=== PATIENT | female | born 1950 | race Caucasian/White ===

== ENCOUNTER 2018-01-21 08:17 | Day surgery (SDC) | payer OTHER ==
[2018-01-21] MEDS ORDERED: LR 1,000 ML IV ONE (09:04)
--- NOTE | 2018-01-21 11:24 | PDHPUP ---
History & Physical Update H&P update statement: This history and physical update is based on an assessment of the patient which was completed after admission or registration (within 24 hours), but prior to the surgery/procedure. H&P update: H&P reviewed & patient examined, no change in patient's condition since H&P completed
--- NOTE | 2018-01-21 11:26 | PDANEPAE ---
ANE History of Present Illness EGD ANE Past Medical History - Cardiovascular History Hx Hypertension: No Hx Arrhythmias: No Hx Chest Pain: No Hx Coronary Artery / Peripheral Vascular Disease: No Hx CHF / Valvular Disease: No Hx Palpitations: No - Pulmonary History Hx COPD: No Hx Asthma/Reactive Airway Disease: No Hx Recent Upper Respiratory Infection: Yes Hx Oxygen in Use at Home: No O2 in Use at Home (L/minute): 2.L Hx Sleep Apnea: No Sleep Apnea Screening Result - Last Documented: Negative - Neurologic History Hx Cerebrovascular Accident: No Hx Seizures: No Hx Dementia: No Neurologic History Comment: tia 10yrs ago - Endocrine History Hx Diabetes: No Hypothyroid: No Hyperthyroid: No Obesity: mild - Renal History Hx Renal Disorders: No - Liver History Hx Hepatic Disorders: No - Neurological & Psychiatric Hx Hx Neurological and Psychiatric Disorders: Yes Neurological / Psychiatric History Comment: long hx chronic depression - Cancer History Hx Cancer: No - Congenital Disorder History Hx Congenital Disorders: No - GI History Hx Gastrointestinal Disorders: Yes Gastrointestinal History Comment: vomiting when eating - Other Health History Other Health History: none - Chronic Pain History Chronic Pain: Yes (bilat knees fibromyalgia) - Surgical History Prior Surgeries: angiogram 2010. tka 2012 ANE Review of Systems Review of Systems: - Exercise capacity METS (RN): 4 METS ANE Patient History - Allergies Allergies/Adverse Reactions: topiramate Allergy (Unknown, Unverified 01/20/18 17:27) - Home Medications Home Medications: Abilify 01/20/18 [Last Taken 01/21/18] Diazepam 01/20/18 [Last Taken 01/21/18] Effexor Xr 01/20/18 [Last Taken 01/21/18] Lamotrigine 01/20/18 [Last Taken 01/21/18] Methylphenidate HCl 01/20/18 [Last Taken 01/21/18] Namenda 5 mg (*) 01/20/18 [Last Taken 01/21/18] Oxybutynin 01/20/18 [Last Taken 01/21/18] Zolpidem Tartrate 01/20/18 [Last Taken 01/21/18] - NPO status NPO Since - Liquids (Date): 01/20/18 NPO Since - Liquids (Time): 22:00 NPO Since - Solids (Date): 01/20/18 NPO Since - Solids (Time): 19:00 - Anes Hx Anes Hx: post operative nausea, slow to awaken from anesthesia - Smoking Hx Smoking Status: Never smoked Marijuana use: No - Alcohol Use Alcohol Use: None - Family Anes Hx Family Anes Hx: none Family Hx Anesthesia Complications: none ANE Labs/Vital Signs - Vital Signs Blood Pressure: 144/89 Heart Rate: 64 Respiratory Rate: 16 O2 Sat (%): 94 Height: 172.72 cm Weight: 87.997 kg ANE Physical Exam - Airway Neck exam: FROM Mallampati Score: Class 1 - Pulmonary Pulmonary: no respiratory distress, no rales or rhonchi - Cardiovascular Cardiovascular: regular rate and rhythym, no murmur, rub, or gallop ANE Anesthesia Plan Anesthesia Plan: GA with mask Total IV Anesthesia: Yes
[2018-01-21] MEDS ORDERED: PROPOFOL/EMULSION 500 MG/50 ML BOTTLE IV ONE (11:33)
[2018-01-21] MEDS ORDERED: fentaNYL 100 MCG/2 ML INJ ONE (11:34)
[2018-01-21] MEDS ORDERED: LIDOCAINE 2% 5 ML SDV ONE (11:36)
--- NOTE | 2018-01-21 11:53 | GIREPORT ---
[facility] - Endoscopy Department Patient Name: Beckie Combs Procedure Date: 01/21/2018 10:52 AM Patient Type: Outpatient Attending MD/ ER Physician: Abby Johnson Procedure: Upper GI endoscopy Indications: Heartburn, Nausea Providers: Calvin Millan MD Referring MD: Micah Patel Medicines: Total IV Anesthesia (TIVA) = IV general without an airway Complications: No immediate complications. Estimated blood loss: Minimal. Description of Procedure: After obtaining informed consent, the endoscope was passed under direct vision. Throughout the procedure, the patient's blood pressure, pulse, and oxygen saturations were monitored continuously. The Endoscope was intro duced through the mouth, and advanced to the third part of duodenum. The uppe r GI endoscopy was accomplished without difficulty. The patient tolerated th e procedure well. Findings: LA Grade C (one or more mucosal breaks continuous between tops of 2 or more mucosal folds, less than 75% circumference) esophagitis with no bleedin g was found in the lower third of the esophagus. Biopsies were taken with a c old forceps for histology. Estimated blood loss was minimal. Localized moderate inflammation characterized by congestion (edema), erythema, friability and granularity was found in the cardia. Biopsies were taken with a cold forceps for histology. Estimated blood loss was minim al. The examined duodenum was normal. The exam was otherwise without abnormality. Estimated Blood Loss: Estimated blood loss was minimal. Post Op Diagnosis: - LA Grade C reflux esophagitis. Rule out Grimes's esophagus. Biopsied . - Gastritis. Biopsied. - Normal examined duodenum. - The examination was otherwise normal. Recommendation: - Await pathology results. - My office will call with the pathology result with 5-7 days. If you h ave not heard from my office by 1214, do not assume the pathology is butch l, please call [phone] to get the pathology results. - Follow an antireflux regimen. - Use Protonix (pantoprazole) 40 mg PO daily. Take 30-60 minutes before breakfast. - Use Zantac (ranitidine) 300 mg PO at bedtime. - Repeat upper endoscopy in 12 weeks to check healing. - Discharge patient to home (ambulatory). - Return to primary care physician as previously scheduled. - Return to GI clinic in 6 weeks. Schedule with PA for 6 week follow-up - Thank you for allowing me to help in your patient's care. Do not hesi dooley to call with any questions. Attending Participation: I personally performed the entire procedure. Monty Simpson M.D Calvin Millan MD 01/21/2018 11:53:26 AM This report has been signed electronicallyMathew MD Monty Number of Addenda: 0 Note Initiated On: 01/21/2018 10:52 AM [email or web address]
[2018-01-21] MEDS ORDERED: ONDANSETRON 4 MG/2 ML VIAL IVP PRN (11:58)
[2018-01-21] MEDS ORDERED: NALOXONE HCL 0.4 MG/ML INJ IVP PRN (11:58)
--- NOTE | 2018-01-21 11:59 | POSTANESTH ---
Post Anesthetic Evaluation Cardiovascular Status: Normal, Stable Respiratory Status: Normal, Stable Level of Consciousness/Mental Status: Can Participate in Eval Pain Control: Adequate, Prn Tx Ordered Nausea/Vomiting Control: Adequate, Prn Tx Ordered Complications Possibly Related to Anesthesia: None Noted
[2018-01-21 13:43] VITALS: BP 162/88
== END 2018-01-21 13:25 | disposition home or self-care (01) ==
LOC: FSGY 08:17
PROVIDERS: ATTEND Internal Medicine Gastroenterology
PROC: 0DB48ZX Excision of Esophagogastric Junction, Via Natural or Artificial Opening Endoscopic, Diagnostic (ICD-10-PCS; principal; 2018-01-21 11:30)
PROC: 0DB58ZX Excision of Esophagus, Via Natural or Artificial Opening Endoscopic, Diagnostic (ICD-10-PCS; principal; 2018-01-21 11:30)
DX: K21.0 Gastro-esophageal reflux disease with esophagitis (principal)
CPT/HCPCS: J2704; J3010